=== PATIENT | male | born 1945 | race Caucasian/White ===

== ENCOUNTER 2023-06-12 06:29 | Day surgery (SDC) | payer OTHER, MEDICARE ==
[2023-06-07 13:25] VITALS: BMI 28.5
[2023-06-12] MEDS ORDERED: LIDOCAINE 1%/EPI 1:100000 (50 ML MULTI DOSE VIAL) ONE (07:18)
[2023-06-12] MEDS ORDERED: ceFAZolin SODIUM 1 GM VIAL ONE ×2 (07:18→07:22)
[2023-06-12] MEDS ORDERED: BUPIVACAINE HCL/PF 0.5% (5MG/ML) 10 ML VIAL ONE (07:18)
[2023-06-12] MEDS ORDERED: TETRACAINE 0.5% OPHTH SOLN 2 ML BOTTLE ONE (07:18)
[2023-06-12] MEDS ORDERED: POVIDONE-IODINE 5% OPHTHALMIC PREP 30 ML SOLUTION ONE (07:18)
[2023-06-12] MEDS ORDERED: ERYTHROMYCIN 0.5% OPHTHALMIC OINTMENT 3.5 GM TUBE ONE (07:18)
[2023-06-12] MEDS ORDERED: PROPOFOL 40 ML ONE (07:22)
[2023-06-12] MEDS ORDERED: DEXAMETHASONE SOD PHOSPHATE 4 MG/1 ML VIAL ONE (07:22)
[2023-06-12] MEDS ORDERED: MIDAZOLAM HCL 2 MG/2 ML SINGLE DOSE VIAL ONE (07:22)
[2023-06-12] MEDS ORDERED: ONDANSETRON 4 MG/2 ML VIAL ONE ×2 (07:22→10:23)
[2023-06-12] MEDS ORDERED: PROPOFOL 20 ML ONE ×2 (08:57→09:12)
[2023-06-12] MEDS ORDERED: ONDANSETRON 4 MG/2 ML VIAL IVPUSH PRN (10:00)
[2023-06-12] MEDS ORDERED: LACTATED RINGERS SOLUTION 1,000 ML IV SCH (10:00)
[2023-06-12] MEDS ORDERED: oxyCODONE HCL 5 MG TABLET PO PRN (10:00)
[2023-06-12] MEDS ORDERED: FENTANYL CITRATE/PF 50 MCG/ML VIAL ONE ×2 (10:04→10:15)
[2023-06-12 10:39] VITALS: TEMP 97.3
[2023-06-12 11:14] VITALS: RESP 18
[2023-06-12 11:57] VITALS: BP 135/75; PULSE 65
== END 2023-06-12 12:00 | disposition home or self-care (01) ==
LOC: FASU 06:29
PROVIDERS: ATTEND Ophthalmology
PROC: 08QNXZZ Repair Right Upper Eyelid, External Approach (ICD-10-PCS; 2023-06-12)
PROC: 08SN0ZZ Reposition Right Upper Eyelid, Open Approach (ICD-10-PCS; principal; 2023-06-12 08:19)
PROC: 08QPXZZ Repair Left Upper Eyelid, External Approach (ICD-10-PCS; 2023-06-12 08:19)
DX: H02.834 Dermatochalasis of left upper eyelid (principal); H02.831 Dermatochalasis of right upper eyelid; H02.002 Unspecified entropion of right lower eyelid; H16.291 Other keratoconjunctivitis, right eye
CPT/HCPCS: 94760